=== PATIENT | male | born 1990 | race Two or more races ===

== ENCOUNTER 2023-06-18 11:42 | Emergency (ER) | payer OTHER ==
[~2023-06-18] VITALS: Ht 170.2 cm; Wt 72.6 kg
[2023-06-18 13:29] LABS: HEMATOCRIT 41.9 % (39.0-48.0); HEMOGLOBIN 14.6 g/dL (13-16.00); MEAN CELL VOLUME 87.9 fL (80.0-100.00); MEAN CORPUSCULAR HEMOGLOBIN 30.6 pg (27.00-32.0); MEAN CORPUSCULAR HGB CONC 34.9 g/dl (32.0-36.0); PLATELET COUNT 229 K/uL (150-450); RED BLOOD COUNT 4.77 M/uL (4.00-6.00); RED CELL DISTRIBUTION WIDTH 13.5 % (11.5-14.5)
[2023-06-18] MEDS ORDERED: AMOX-CLAV 875-1 EACH PO (14:34)
== END 2023-06-18 14:36 | disposition home or self-care (01) ==
LOC: ER 11:43
PROVIDERS: General Practice
DX: J03.90 Acute tonsillitis, unspecified (principal)